=== PATIENT | female | born 1975 | race African-American/Black ===

== ENCOUNTER 2023-01-08 17:07 | Emergency (ER) | payer BC ==
[~2023-01-08] VITALS: Ht 162.6 cm; Wt 107.0 kg
[2023-01-08 18:27] LABS: RAPID GROUP A STREP negative (NEGATIVE)
[2023-01-08 18:35] LABS: INFLUENZA TYPE A Negative For Type A (NEGATIVE); INFLUENZA TYPE B Negative For Type B (NEGATIVE)
[2023-01-08 18:41] LABS: SARS-CoV-2, RNA, NAAT POSITIVE SARS CoV-2 (NEGATIVE)
[2023-01-08] MEDS ORDERED: ALBU90AE2 IH (21:53)
[2023-01-08] MEDS ORDERED: PRED20TA3 PO (21:53)
[2023-01-08 21:56] VITALS: BP 135/68; PULSE 78; RESP 18; O2SAT 98
== END 2023-01-08 22:04 | disposition home or self-care (01) ==
LOC: EDH 17:07
DX: U07.1 COVID-19 (principal); I10 Essential (primary) hypertension; Z88.6 Allergy status to analgesic agent; Z90.49 Acquired absence of other specified parts of digestive tract
CPT/HCPCS: 99284; 71045; 87635; 84484; 87880; 87804 ×2; 93005; C9803